=== PATIENT | male | born 1970 | race Caucasian/White ===

== ENCOUNTER 2017-09-08 14:55 | Inpatient (IN) | payer MEDICARE, MEDICAID ==
[~2017-09-08] VITALS: Ht 177.8 cm; Wt 134.5 kg
[2017-09-08] MEDS ORDERED: NITROGLYCERIN SUBLINGUAL 0.4 MG BOTTLE OF 25. SL PRN ×3 (15:00→18:45)
--- NOTE | 2017-09-08 15:00 | PHYS DOC ---
Adult General Chief Complaint Chief Complaint: CHEST PAIN-CARDIAC NATURE HPI HPI Patient is a 47 year old male who presents with child chest pain. He states it started some tenderness when he last for a few minutes and resolves on its own. He states he feels short of breath with this he states that sharp pain is in the left side of his chest and does not radiate. Denies any nausea associated with this. He states this happened about 3 times a day and it occurs at rest. He states he did have a stress test about 3 years ago in [facility] he states his brother the age of 50 had his first heart attack and his dad at the age of 46 from a heart attack. He does smoke he smokes of the age of 12 about a pack per day and also has a history of hypertension and diabetes. Currently states he is pain-free. Review of Systems Review of Systems Constitutional: Denies fever or chills [] Eyes: Denies change in visual acuity, redness, or eye pain [] HENT: Denies nasal congestion or sore throat [] Respiratory: Denies cough or shortness of breath [] Cardiovascular: No additional information not addressed in HPI [] GI: Denies abdominal pain, nausea, vomiting, bloody stools or diarrhea [] : Denies dysuria or hematuria [] Musculoskeletal: Denies back pain or joint pain [] Integument: Denies rash or skin lesions [] Neurologic: Denies headache, focal weakness or sensory changes [] Endocrine: Denies polyuria or polydipsia [] Physical Exam Physical Exam Constitutional: Well developed, well nourished, no acute distress, non-toxic appearance. [] HENT: Normocephalic, atraumatic, bilateral external ears normal, oropharynx moist, no oral exudates, nose normal. [] Eyes: PERRLA, EOMI, conjunctiva normal, no discharge. [] Neck: Normal range of motion, no tenderness, supple, no stridor. [] Cardiovascular:Heart rate regular rhythm, no murmur [] Lungs & Thorax: Bilateral breath sounds clear to auscultation [] Abdomen: Bowel sounds normal, soft, no tenderness, no masses, no pulsatile masses. [] Skin: Warm, dry, no erythema, no rash. [] Back: No tenderness, no CVA tenderness. [] Extremities: No tenderness, no cyanosis, no clubbing, ROM intact, no edema. [] Neurologic: Alert and oriented X 3, normal motor function, normal sensory function, no focal deficits noted. [] Psychologic: Affect normal, judgement normal, mood normal. [] EKG EKG EKG shows heart rate sinus rhythm rate of [address] elevations, T- wave inversions noted in lead aVL, left axis deviation noted, QTC 435 ms, as interpreted by me. Radiology/Procedures Radiology/Procedures [address] [address] IMAGING REPORT Signed PATIENT: ORTEGA HOLMAN ACCOUNT: [id number] : 1970 LOCATION: ER AGE: 47 SEX: M EXAM STATUS: REG ER ORD. PHYSICIAN: OSMANI HAWKINS MD REASON: chest pain PROCEDURE: PORTABLE CHEST 1V Indication chest pain. A single view of the chest was obtained. No prior imaging of the chest is available. Heart size is at the upper limits of normal. There is no congestive heart failure. There is a retrocardiac density at the thoracal abdominal junction which may reflect a hiatus hernia. Other etiologies are not entirely excluded. There is no acute parenchymal infiltrate. There is no pleural fluid or pneumothorax and the visualized bony structures appear grossly intact apart from some degenerative changes at the left AC joint. IMPRESSION: No acute finding in the chest. Suspect hiatus hernia. See above discussion. DICTATED AND SIGNED BY: JUAN R SHANNON MD DATE: 09/08/17 1526 CC: OSMANI HAWKINS MD; PCP,NO ~ Impressions: Chest pain Hypertension Diabetes Tobacco abuse Course & Med Decision Making Course & Med Decision Making Pertinent Labs and Imaging studies reviewed. (See chart for details) EKG does have T-wave inversions in lead aVL, chest x-ray first troponin nonacute. We'll admit for rule out to Dr. Barlow. He did receive aspirin in route by EMS. He accepts the patient for admission. Patient's history, physical exam findings and labs have been discussed with him. Dragon Disclaimer Dragon Disclaimer This chart was dictated in whole or in part using Voice Recognition software in a busy, high-work load, and often noisy Emergency Department environment. It may contain unintended and wholly unrecognized errors or omissions. Departure Departure: Impression: Primary Impression: Chest pain Disposition: ADMITTED INPATIENT Admitting Physician: Shahida Barlow Condition: STABLE Problem Qualifiers Primary Impression: Chest pain Chest pain type: unspecified Qualified Codes: R07.9 - Chest pain, unspecified OSMANI HAWKINS MD Sep 08, 2017 15:00
--- NOTE | 2017-09-08 15:31 | RAD ---
Indication chest pain. A single view of the chest was obtained. No prior imaging of the chest is available. Heart size is at the upper limits of normal. There is no congestive heart failure. There is a retrocardiac density at the thoracal abdominal junction which may reflect a hiatus hernia. Other etiologies are not entirely excluded. There is no acute parenchymal infiltrate. There is no pleural fluid or pneumothorax and the visualized bony structures appear grossly intact apart from some degenerative changes at the left AC joint. IMPRESSION: No acute finding in the chest. Suspect hiatus hernia. See above discussion.
[2017-09-08 15:37] LABS: BASO # 0.1 x10^3/uL (0.0-0.2); BASO % 1 % (0-3); EOS # 0.3 x10^3/uL (0.0-0.7); EOS % 6 % (0-3); HEMOGLOBIN 16.3 g/dL (13.0-17.5); LYMPH # 2.2 x10^3/uL (1.0-4.8); LYMPH % 38 % (24-48); MEAN CORPUSCULAR HEMOGLOBIN 34 pg (25-35); MEAN CORPUSCULAR HGB CONC 35 g/dL (31-37); MEAN CORPUSCULAR VOLUME 98 fL (79-100); MONO # 0.5 x10^3/uL (0.0-1.1); MONO % 8 % (0-9); NEUT # 2.7 x10^3uL (1.8-7.7); NEUT % 47 % (31-73); PLATELET COUNT 89 x10^3/uL (140-400); RED BLOOD COUNT 4.81 x10^6/uL (4.30-5.70); WHITE BLOOD COUNT 5.8 x10^3/uL (4.0-11.0)
[2017-09-08] MEDS ORDERED: ASPIRIN 325 MG TABLET PO ONE (16:00)
[2017-09-08 16:07] LABS: CALCIUM 9.2 mg/dL (8.5-10.1); DIRECT BILIRUBIN 0.2 mg/dL (0.0-0.2); GFR 80.1; MAGNESIUM 1.8 mg/dL (1.8-2.4); TOTAL BILIRUBIN 0.6 mg/dL (0.2-1.0)
[2017-09-08 16:14] LABS: AMPHETAMINE/METHAMPHETAMINE NEG (NEG); BARBITURATES NEG (NEG); BENZODIAZEPINES NEG (NEG); CANNABINOIDS NEG (NEG); COCAINE NEG (NEG); METHADONE NEG (NEG); OPIATES NEG (NEG); PHENCYCLIDINE NEG (NEG)
[2017-09-08 16:30] LABS: BILIRUBIN,URINE NEG (NEG); CLARITY,URINE CLEAR; COLOR,URINE YELLOW; GLUCOSE,URINE NEG (NEG); UROBILINOGEN,URINE 0.2 mg/dL (0.2 mg/dL)
[2017-09-08 16:31] LABS: BACTERIA,URINE 0 /HPF (0-FEW); NITRITE,URINE NEG (NEG); RBC,URINE 0 /HPF (0-2); WBC,URINE 0 /HPF (0-4)
[2017-09-08] MEDS ORDERED: MORPHINE SULFATE 2 MG/ML DISP.SYRIN. IV PRN (17:15)
[2017-09-08] MEDS ORDERED: NICOTINE 21MG PATCH. TD ONE (17:30)
[2017-09-08] MEDS ORDERED: ONDANSETRON PF 4 MG/2 ML VIAL. IV PRN (17:30)
[2017-09-08] MEDS ORDERED: MORPHINE SULFATE 2 MG/ML DISP.SYRIN. IV ONE (17:45)
--- NOTE | 2017-09-08 17:49 | EKG ---
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
[2017-09-08 18:00] VITALS: BP 104/66
[2017-09-08 18:35] VITALS: BP 104/66
[2017-09-08] MEDS ORDERED: NYST15CR TP (18:44)
[2017-09-08] MEDS ORDERED: ESOM40CA PO (18:44)
[2017-09-08] MEDS ORDERED: ASPI-630 PO (18:44)
[2017-09-08] MEDS ORDERED: ATOR10TA60 PO (18:44)
[2017-09-08] MEDS ORDERED: BUDE10.2 IH (18:45)
[2017-09-08] MEDS ORDERED: ALBUTEROL SULFATE 8GM INHALER. IH PRN (18:45)
[2017-09-08] MEDS ORDERED: PREG150C PO (18:45)
[2017-09-08] MEDS ORDERED: LURA80TA PO (18:45)
[2017-09-08] MEDS ORDERED: LISI10TA2 PO (18:46)
[2017-09-08] MEDS ORDERED: METF500T4 PO (18:46)
[2017-09-08] MEDS ORDERED: NORT75CA PO (18:46)
[2017-09-08] MEDS ORDERED: ALBU18HF IH (18:47)
[2017-09-08] MEDS ORDERED: NITR0.4T SL (18:47)
[2017-09-08] MEDS ORDERED: MORP15TA PO (18:50)
[2017-09-08] MEDS ORDERED: ALBUTEROL SULFATE 2.5 MG/3 ML NEBU. NEB PRN (19:30)
[2017-09-08] MEDS: MORPHINE IR 15 MG TABLET PO PRN (19:45)
[2017-09-08 19:48] VITALS: BP 125/70
[2017-09-08] MEDS ORDERED: LURASIDONE 40 MG TABLET. PO SCH (21:00)
[2017-09-08] MEDS ORDERED: ATORVASTATIN CALCIUM 10 MG TABLET. PO SCH (21:00)
[2017-09-08] MEDS ORDERED: FLU VACC QS2017-18 (36MOS+)/PF 0.5 ML SYRINGE. VAX IM ONE (21:00)
[2017-09-08] MEDS ORDERED: NON FORMULARY ITEM (Budesonide/Formoterol Fumarate (Symbicort 160-4.5 Mcg Inhaler) 2 PUFF) IH SCH (21:00)
[2017-09-08] MEDS ORDERED: NORTRIPTYLINE 25 MG CAPSULE PO SCH (21:00)
[2017-09-08] MEDS: BUDESONIDE 0.5 MG/2 ML NEBU NEB SCH (21:08)
[2017-09-08] MEDS: ALBUTEROL SULFATE 2.5 MG/3 ML NEBU. NEB SCH (21:08)
[2017-09-08] MEDS: NYSTATIN 100,000 UNIT/GM TOPICAL CREAM 15GM TUBE. TP SCH (21:20)
[2017-09-08] MEDS: metFORMIN 500 MG TABLET PO SCH (21:21)
[2017-09-08] MEDS: PREGABALIN 150 MG CAPSULE PO SCH (21:22)
--- NOTE | 2017-09-08 22:00 | EKG ---
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
[2017-09-08 22:26] VITALS: BP 122/53
[2017-09-09 04:31] VITALS: BP 141/71
[2017-09-09 04:40] LABS: BASO % 1 % (0-3); EOS # 0.3 x10^3/uL (0.0-0.7); EOS % 5 % (0-3); HEMATOCRIT 43.7 % (39.0-53.0); LYMPH # 2.2 x10^3/uL (1.0-4.8); LYMPH % 36 % (24-48); MEAN CORPUSCULAR HEMOGLOBIN 34 pg (25-35); MEAN CORPUSCULAR HGB CONC 34 g/dL (31-37); MEAN CORPUSCULAR VOLUME 99 fL (79-100); MONO # 0.5 x10^3/uL (0.0-1.1); MONO % 8 % (0-9); NEUT # 3.1 x10^3uL (1.8-7.7); NEUT % 50 % (31-73); PLATELET COUNT 85 x10^3/uL (140-400); RED BLOOD COUNT 4.43 x10^6/uL (4.30-5.70); RED CELL DISTRIBUTION WIDTH 13.1 % (11.5-14.5); WHITE BLOOD COUNT 6.2 x10^3/uL (4.0-11.0)
[2017-09-09 04:43] LABS: CALCIUM 8.7 mg/dL (8.5-10.1); GFR 80.1; POTASSIUM 4.5 mmol/L (3.5-5.1)
[2017-09-09] MEDS: ALBUTEROL SULFATE 2.5 MG/3 ML NEBU. NEB SCH ×2 (05:30→12:31)
[2017-09-09] MEDS ORDERED: PANTOPRAZOLE 40 MG TABLET. PO SCH (07:30)
[2017-09-09] MEDS: PREGABALIN 150 MG CAPSULE PO SCH (08:24)
[2017-09-09] MEDS: MORPHINE IR 15 MG TABLET PO PRN (08:24)
[2017-09-09] MEDS: metFORMIN 500 MG TABLET PO SCH (08:25)
[2017-09-09] MEDS: NYSTATIN 100,000 UNIT/GM TOPICAL CREAM 15GM TUBE. TP SCH (08:25)
[2017-09-09] MEDS ORDERED: LISINOPRIL 10 MG TABLET PO SCH (09:00)
[2017-09-09] MEDS ORDERED: ASPIRIN 81 MG TAB.CHEW PO SCH (09:00)
--- NOTE | 2017-09-09 09:04 | PDOC2 ---
YASEMIN CLINE MARKET RISK ANALYST 09/09/17 0904: CONSULT Date of Admission DATE: 09/09/17 TIME: 09:03 Reason for Consult: cp Problem List Problems Medical Problems: (1) Chest pain Status: Acute History of Present Illness Mr Sy is a 47 year old male with history of hypertension, hyperlipidemia and diabetes. He presents with complaints of chest pain. He describes a sharp stabbing pain in his left chest, non radiating and without associated symptoms. Pain is unrelated to exertion. He reports his functional capacity at 3-4 blocks without symptoms. The pain lasts about a minute and resolves spontaneously. He denies exacerbating or relieving factors. He says he has been having this discomfort for several years but it has become more severe over the last day or so. He did undergo a stress test about 3 years ago that was reportedly normal. He denies any congestive symptoms. He does have dyspnea off and on both with exertion and at rest, that is improved with use of an inhaler. He denies any palpitations, lightheadedness or syncope. He does report his pain was resolved after NTG. Cardiovascular: HTN, hyperipidemia Pulmonary: COPD GI: GERD Endocrine: Diabetes Past Surgical History neck, back and elbow surgeries Family History father from [place] in his 40s brother with [place] at 50 sister with heart failure Social History 1ppd smoker, no ETOH for 20 years, no illicit drugs for 20 years. History of heavy drinking and polysubstance abuse. Current Medications Current Medications Nitroglycerin (Nitrostat) 0.4 mg PRN Q5MIN PRN SL CP RATING > 1/10; Start 10/15 at 15:00; Stop 09/08/17 at 17:36; Status DC Aspirin (Luis Eduardo Aspirin) 325 mg 1X ONCE PO ; Start 09/08/17 at 16:00; Stop 10/15 at 16:01; Status DC Ondansetron HCl (Zofran) 4 mg PRN Q4HRS PRN IV NAUSEA/VOMITING; Start at 17:30; Stop 09/09/17 at 17:29 Morphine Sulfate (Morphine 2mg Syringe) 2 mg PRN Q2HR PRN IV PAIN; Start 09/08 at 17:15; Stop 09/09/17 at 17:14 Nitroglycerin (Nitrostat) 0.4 mg PRN Q5MIN PRN SL CHEST PAIN Last administered on 09/08/17 17:26; Start 09/08/17 at 17:15; Stop 09/08/17 at 19:23; Status DC Nicotine (Nicoderm Cq 21mg) 1 patch 1X ONCE TD Last administered on 19:42; Start 09/08/17 at 17:30; Stop 09/08/17 at 17:31; Status DC Morphine Sulfate (Morphine 2mg Syringe) 2 mg 1X ONCE IV ; Start 09/08/17 at 17 :45; Stop 09/08/17 at 17:46; Status DC Albuterol Sulfate (Ventolin Hfa) 1 puff PRN Q4HRS PRN IH FOR ASTHMA; Start 10/15 at 18:45; Status UNV Aspirin (Children'S Aspirin) 81 mg DAILY PO Last administered on 09/09/17 08: 25; Start 09/09/17 at 09:00 Atorvastatin Calcium (Lipitor) 10 mg QHS PO Last administered on 09/08/17 21: 21; Start 09/08/17 at 21:00 Lisinopril (Prinivil) 10 mg DAILY PO Last administered on 09/09/17 08:25; Start 09/09/17 at 09:00 Metformin HCl (Glucophage) 500 mg BIDWMEALS PO Last administered on 09/09/17 08:25; Start 09/08/17 at 20:00 Morphine Sulfate (Morphine Ir) 15 mg PRN Q4HRS PRN PO PAIN Last administered on 09/09/17 08:24; Start 09/08/17 at 18:45 Nitroglycerin (Nitrostat) 0.4 mg PRN Q5MIN PRN SL CHEST PAIN; Start 09/08/17 at 18:45 Nystatin (Mycostatin) 1 wally BID TP Last administered on 09/09/17 08:25; Start 09/08/17 at 21:00 Pregabalin (Lyrica) 150 mg TID PO Last administered on 09/09/17 08:24; Start 09/08/17 at 21:00 Non-Formulary Medication 2 puff BID IH ; Start 09/08/17 at 21:00; Status UNV Pantoprazole Sodium (Protonix) 40 mg DAILYAC PO Last administered on 08:25; Start 09/09/17 at 07:30 Non-Formulary Medication 1 tab QHS PO ; Start 09/08/17 at 21:00; Status UNV Nortriptyline HCl (Pamelor) 75 mg QHS PO Last administered on 09/08/17 21:26 ; Start 09/08/17 at 21:00 Influenza Virus Vaccine Quadrival (Fluarix Quad [id number] Syringe) 0.5 ml ONCE ONCE VAX IM Last administered on 09/08/17 21:24; Start 09/08/17 at 21:00; Stop 09/08/17 at 21:01; Status DC Albuterol Sulfate (Ventolin) 2.5 mg PRN Q4HRS PRN NEB SHORTNESS OF BREATH; Start 09/08/17 at 19:30 Albuterol Sulfate (Ventolin) 2.5 mg RTQID NEB Last administered on 09/09/17 05:30; Start 09/08/17 at 20:00 Budesonide (Pulmicort) 0.5 mg RTBID NEB Last administered on 09/08/17 21:08; Start 09/08/17 at 20:00 Active Scripts Active Reported Morphine Sulfate 15 Mg Tablet 1 Tab PO PRN Q4HRS PRN Nitrostat (Nitroglycerin) 0.4 Mg Tab.subl 0.4 Mg SL PRN Q5MIN PRN Ventolin Hfa Inhaler (Albuterol Sulfate) 18 Gm Hfa.aer.ad 1 Puff IH PRN Q4HRS PRN Lisinopril 10 Mg Tablet 10 Mg PO DAILY Metformin Hcl 500 Mg Tablet 1 Tab PO BID Nortriptyline Hcl 75 Mg Capsule 75 Mg PO QHS Symbicort 160-4.5 Mcg Inhaler (Budesonide/Formoterol Fumarate) 10.2 Gm Hfa.aer.ad 2 Puff IH BID Lyrica (Pregabalin) 150 Mg Capsule 150 Mg PO TID Latuda (Lurasidone Hcl) 80 Mg Tablet 1 Tab PO QHS Nystatin 15 Gm Cream..g. 1 Wally TP BID Atorvastatin Calcium 10 Mg Tablet 10 Mg PO QHS Nexium Capsule (Esomeprazole Magnesium) 40 Mg Capsule.dr 40 Mg PO DAILYAC Aspirin 81 Mg Tab.chew 81 Mg PO DAILY Allergies: Coded Allergies: Penicillins (Verified Allergy, Unknown, 09/08/17) Review of System as per HPI General: Alert, Oriented X3, Cooperative, No acute distress HEENT: Atraumatic, EOMI Heart: Regular rate, Normal S1, Normal S2, Other (no gallops, clicks or rubs) Abdomen: Normal bowel sounds, Soft, No tenderness Extremities: No cyanosis, Normal pulses, Other (trace edema) Neuro: Normal speech, Strength at 5/5 X4 ext Psych/Mental Status: Mental status NL, Mood NL VITALS Vital Signs Date Time Temp Pulse Resp B/P (MAP) Pulse Ox O2 Delivery O2 Flow Rate FiO2 09/09/17 08:25 87 141/71 09/09/17 07:50 Room Air 09/09/17 05:31 96 2.0 09/09/17 04:31 97.7 18 Labs Laboratory Tests Test 09/08/17 15:20 09/08/17 15:28 09/08/17 19:58 09/08/17 22:10 White Blood Count 5.8 x10^3/uL (4.0-11.0) Red Blood Count 4.81 x10^6/uL (4.30-5.70) Hemoglobin 16.3 g/dL (13.0-17.5) Hematocrit 47.0 % (39.0-53.0) Mean Corpuscular Volume 98 fL (79-100) Mean Corpuscular Hemoglobin 34 pg (25-35) Mean Corpuscular Hemoglobin Concent 35 g/dL (31-37) Red Cell Distribution Width 13.0 % (11.5-14.5) Platelet Count 89 x10^3/uL (140-400) Neutrophils (%) (Auto) 47 % (31-73) Lymphocytes (%) (Auto) 38 % (24-48) Monocytes (%) (Auto) 8 % (0-9) Eosinophils (%) (Auto) 6 % (0-3) Basophils (%) (Auto) 1 % (0-3) Neutrophils # (Auto) 2.7 x10^3uL (1.8-7.7) Lymphocytes # (Auto) 2.2 x10^3/uL (1.0-4.8) Monocytes # (Auto) 0.5 x10^3/uL (0.0-1.1) Eosinophils # (Auto) 0.3 x10^3/uL (0.0-0.7) Basophils # (Auto) 0.1 x10^3/uL (0.0-0.2) Prothrombin Time 10.3 SEC (9.4-11.4) Prothromb Time International Ratio 1.0 (0.9-1.1) Activated Partial Thromboplast Time 24 SEC (23-33) Sodium Level 139 mmol/L (136-145) Potassium Level 4.0 mmol/L (3.5-5.1) Chloride Level 101 mmol/L (98-107) Carbon Dioxide Level 30 mmol/L (21-32) Anion Gap 8 (6-14) Blood Urea Nitrogen 9 mg/dL (8-26) Creatinine 1.0 mg/dL (0.7-1.3) Estimated GFR (Cockcroft-Gault) 80.1 Glucose Level 140 mg/dL (70-99) Calcium Level 9.2 mg/dL (8.5-10.1) Magnesium Level 1.8 mg/dL (1.8-2.4) Total Bilirubin 0.6 mg/dL (0.2-1.0) Direct Bilirubin 0.2 mg/dL (0.0-0.2) Aspartate Amino Transf (AST/SGOT) 76 U/L (15-37) Alanine Aminotransferase (ALT/SGPT) 136 U/L (16-63) Alkaline Phosphatase 109 U/L (46-116) Creatine Kinase 577 U/L (39-308) Creatine Kinase MB (Mass) 1.7 ng/mL (0.0-3.6) Creatine Kinase MB Relative Index 0.3 % (0-4) Troponin I Quantitative 0.018 ng/mL (0-0.055) 0.018 ng/mL (0-0.055) GA-Uhx-R-Type Natriuretic Peptide 12 pg/mL (0-124) Total Protein 7.0 g/dL (6.4-8.2) Albumin 4.0 g/dL (3.4-5.0) Urine Collection Type Void Urine Color Yellow Urine Clarity Clear Urine pH 6.0 Urine Specific Faber <=1.005 Urine Protein Neg (NEG-TRACE) Urine Glucose (UA) Neg mg/dL (NEG) Urine Ketones (Stick) Neg mg/dL (NEG) Urine Blood Neg (NEG) Urine Nitrite Neg (NEG) Urine Bilirubin Neg (NEG) Urine Urobilinogen Dipstick 0.2 mg/dL (0.2 mg/dL) Urine Leukocyte Esterase Neg (NEG) Urine RBC 0 /HPF (0-2) Urine WBC 0 /HPF (0-4) Urine Squamous Epithelial Cells None /LPF Urine Bacteria 0 /HPF (0-FEW) Urine Opiates Screen Neg (NEG) Urine Methadone Screen Neg (NEG) Urine Barbiturates Neg (NEG) Urine Phencyclidine Screen Neg (NEG) Urine Amphetamine/Methamphetamine Neg (NEG) Urine Benzodiazepines Screen Neg (NEG) Urine Cocaine Screen Neg (NEG) Urine Cannabinoids Screen Neg (NEG) Urine Ethyl Alcohol Neg (NEG) Glucose (Fingerstick) 158 mg/dL (70-99) Test 09/09/17 04:05 09/09/17 07:40 White Blood Count 6.2 x10^3/uL (4.0-11.0) Red Blood Count 4.43 x10^6/uL (4.30-5.70) Hemoglobin 15.0 g/dL (13.0-17.5) Hematocrit 43.7 % (39.0-53.0) Mean Corpuscular Volume 99 fL (79-100) Mean Corpuscular Hemoglobin 34 pg (25-35) Mean Corpuscular Hemoglobin Concent 34 g/dL (31-37) Red Cell Distribution Width 13.1 % (11.5-14.5) Platelet Count 85 x10^3/uL (140-400) Neutrophils (%) (Auto) 50 % (31-73) Lymphocytes (%) (Auto) 36 % (24-48) Monocytes (%) (Auto) 8 % (0-9) Eosinophils (%) (Auto) 5 % (0-3) Basophils (%) (Auto) 1 % (0-3) Neutrophils # (Auto) 3.1 x10^3uL (1.8-7.7) Lymphocytes # (Auto) 2.2 x10^3/uL (1.0-4.8) Monocytes # (Auto) 0.5 x10^3/uL (0.0-1.1) Eosinophils # (Auto) 0.3 x10^3/uL (0.0-0.7) Basophils # (Auto) 0.0 x10^3/uL (0.0-0.2) Sodium Level 138 mmol/L (136-145) Potassium Level 4.5 mmol/L (3.5-5.1) Chloride Level 103 mmol/L (98-107) Carbon Dioxide Level 32 mmol/L (21-32) Anion Gap 3 (6-14) Blood Urea Nitrogen 7 mg/dL (8-26) Creatinine 1.0 mg/dL (0.7-1.3) Estimated GFR (Cockcroft-Gault) 80.1 Glucose Level 120 mg/dL (70-99) Calcium Level 8.7 mg/dL (8.5-10.1) Troponin I Quantitative 0.018 ng/mL (0-0.055) Glucose (Fingerstick) 118 mg/dL (70-99) Images EKG - sinus rhythm with nonspecific abn CXR - IMPRESSION: No acute finding in the chest. Suspect hiatus hernia. See above discussion. Assessment/Plan 1. Atypical chest pain - no acute ischemic change on EKG, CE negative x3. 2. hypertension 3. hyperlipidemia 4. diabetes mellitus 5. GERD Atypical chest pain, however significant risk factors would certainly warrant stress testing. Suggest addition of antianginals and MPI in am. Could be done outpatient if necessary. Will check lipids and request prior MPI reports. Prior MPI and echo reviewed. Normal LV function and wall motion in 2013. No evidence of ischemia on stress test in 2013. Plan for outpatient echo and Lexiscan MPI. Problems: CARLOS ALBERTO ROMERO MD 09/09/17 1627: CONSULT Allergies: Coded Allergies: Penicillins (Verified Allergy, Unknown, 09/08/17) YASEMIN CLINE APRN Sep 09, 2017 09:04 CARLOS ALBERTO ROMERO MD Sep 09, 2017 16:27
[2017-09-09] MEDS ORDERED: METOPROLOL TART IMMED RELEASE 25 MG TABLET PO SCH (10:00)
[2017-09-09 11:01] VITALS: BP 127/78
[2017-09-09] MEDS: BUDESONIDE 0.5 MG/2 ML NEBU NEB SCH (12:31)
[2017-09-09] MEDS ORDERED: METO25TA4 PO (14:20)
--- NOTE | 2017-09-09 15:06 | HP ---
ADMIT DATE: 09/08/2017 HISTORY OF PRESENT ILLNESS: The patient is a 47-year-old male patient who basically presented to the Emergency Room with a complaint of chest pain, described as a sharp, stabbing pain in his left chest, nonradiating without associated symptoms. The pain is unrelated to exertion. He reports his functional capacity is at 3-4 blocks without symptoms. Pain lasted for about a minute and resolved spontaneously. Denies any exacerbating or relieving factors. He apparently has had this discomfort for several years, but it has become more severe over the last days or so. He did undergo a stress test about 3 years ago and was reportedly normal. He denied any congestive symptoms. He does have dyspnea off and on, both with exertion and at rest that improves with the use of inhalers. He denies any palpitations, lightheadedness, syncope. He stated that his pain has resolved with nitroglycerin. PAST MEDICAL HISTORY: Significant for hypertension, hyperlipidemia, chronic obstructive pulmonary disease, gastroesophageal reflux disease, and type 2 diabetes. PAST SURGICAL HISTORY: Significant for neck, back and elbow surgeries. FAMILY HISTORY: Father was from myocardial infarction in his 40s. His brother has had myocardial infarctions in his 50s. His sister has heart failure. SOCIAL HISTORY: History of heavy drinking and polysubstance abuse. He smokes a pack a day and no alcohol for 20 years, no illicit drugs for 20 years. MEDICATIONS: He is currently on following medications: He is on albuterol sulfate 1 puff every 4 hours, aspirin 81 mg once a day, atorvastatin calcium 10 mg at bedtime, Symbicort 160/4.5 two puffs twice a day, Nexium 40 mg daily, lisinopril 10 mg once a day, Latuda 80 mg at bedtime, metformin 500 mg twice a day, morphine sulfate 15 mg every 4 hours, nitroglycerin 0.4 mg every 5 minutes x 3, nortriptyline 75 mg at bedtime, nystatin cream applied topically twice a day, pregabalin for Lyrica 150 mg 3 times a day. PHYSICAL EXAMINATION: GENERAL: On arrival to the Emergency Room, the patient looked well and was clearly in no apparent respiratory distress. No pallor, jaundice, cyanosis, lymphadenopathy or thyromegaly. No jugular venous distention. No limb edema. VITAL SIGNS: His heart rate was 92, blood pressure was 129/77, temperature was 98.4, respiratory rate was 16, and oxygen saturation was 97% on room air. HEENT: Showed normocephalic, atraumatic. NECK: Supple. HEART: Showed normal first and second heart sounds with no gallop, rub or murmur. CHEST: Clear to auscultation. No crepitation or rhonchi. ABDOMEN: Distended, soft, nontender. NEUROLOGIC: He is awake, alert, responding appropriately. All cranial nerves intact. EXTREMITIES: He moves extremities without difficulty, ambulates without assistance or assistive devices. LABORATORY DATA: While in the Emergency Room, he had lab work done, which showed a white cell count of 5800, hemoglobin 16, hematocrit 47, MCV 98 and platelet count of 89,000. His chemistry showed a serum sodium of 139, potassium 4, chloride 101, bicarbonate 30, anion gap of 8, BUN 9, creatinine 1, estimated GFR was 80 mL per minute. His glucose was 140, calcium was 9.2, magnesium was 1.8. Total bilirubin is normal as well as alkaline phosphatase. His AST, ALT are elevated. His CK was high at 577. His first set of cardiac enzymes showed troponin to be less than 0.018. His beta-natriuretic peptide was 12, total protein 7, albumin 4. His prothrombin time was 10.3, INR 1, aPTT was 24. Urinalysis was unremarkable and urine toxic screen was negative. His chest x-ray showed the heart size at the upper limit of normal. There is no congestive heart failure. There is a retrocardiac density at the thoracoabdominal junction, which may represent a hiatal hernia. Other etiologies are not entirely excluded. There is no acute parenchymal infiltrate. There is no pleural fluid or pneumothorax. The visualized bony structures appear grossly intact, apart from some degenerative changes of the left acromioclavicular joint. His EKG does have T-wave inversion in lead aVL but no ST segment elevation or depression. PLAN: The patient was admitted to do 2 more sets of cardiac enzymes, check his fasting lipid profile and consult the Cardiology team. VAUGHN MUNIZ MD DR: LAVINIA/chelsea JOB#: [id number] / [id number]
--- NOTE | 2017-09-09 22:09 | DS ---
DATE OF DISCHARGE: 09/09/2017 HOSPITAL COURSE: The patient is 47-year-old male patient, who was admitted with chest pain. He has had 3 sets of cardiac enzymes, all of them showed the troponin to be less than 0.018. He was evaluated by the Cardiology team and given his multiple risk factors for coronary artery disease and very strong family history, a decision was made to discharge him home. He was started on metoprolol and decision was made to discharge him home to arrange for a nuclear stress test as an outpatient as well as an echocardiogram. PHYSICAL EXAMINATION: GENERAL: When I saw him this afternoon, he looked well and was clearly in no apparent respiratory distress, pale, but no jaundice, cyanosis, or thyromegaly. No jugular venous distention. No limb edema. VITAL SIGNS: His heart rate was 84, blood pressure was 127/78, temperature was 98.6, respiratory rate 21, and oxygen saturation was 96%. HEAD, EYES, EARS, NOSE, AND THROAT: Showed normocephalic, atraumatic. NECK: Supple. HEART: Showed normal first and second heart sounds with no gallop, rub, or murmur. CHEST: Clear to auscultation. No crepitation or rhonchi. ABDOMEN: Distended, soft, nontender. No guarding or rigidity. No organomegaly. Hernial orifices intact. Bowel sounds normal. NEUROLOGIC: He was awake, alert, responding appropriately. Cranial nerves intact. EXTREMITIES: He moves extremities without difficulty, ambulates without assistance or assistive devices. LABORATORY DATA: Today showed a serum sodium 138, potassium 4.5, chloride 103, bicarbonate 32, anion gap of 3, BUN 7, creatinine 1, estimated GFR was 80 mL per minute. His glucose was 120, calcium was 8.7. There are 2 more sets of cardiac enzyme. Both of them were less than 0.018. His fasting lipid profile showed serum triglycerides of 154. Total cholesterol 167, LDL cholesterol was 100, VLDL was 30, and HDL cholesterol 37, the ratio was 4. His TSH was 1.295. His white cell count was 6200, hemoglobin 15, hematocrit 44, MCV 99, and platelet count of 85,000. DISCHARGE MEDICATIONS: He was discharged home to continue on following medications: Metoprolol tartrate 25 mg twice a day, albuterol sulfate 1 puff every 4 hours, aspirin 81 mg once a day, atorvastatin calcium 10 mg at bedtime, Symbicort 2 puffs twice a day, Nexium 40 mg once a day, lisinopril 10 mg once a day, Latuda 80 mg once a day, metformin 500 mg p.o. b.i.d., morphine sulfate 15 mg every 4 hours as needed, nitroglycerin 0.4 mg sublingually every 5 minutes x 3, nortriptyline 75 mg at bedtime, pregabalin/Lyrica 150 mg 3 times a day and nystatin cream applied topically twice a day. FINAL DISCHARGE DIAGNOSES: Chest pain, myocardial infarction ruled out, hypertension, hyperlipidemia, chronic obstructive pulmonary disease, gastroesophageal reflux disease, type 2 diabetes, thrombocytopenia, and nonalcohol steatohepatitis. VAUGHN MUNIZ MD DR: LAVINIA/[place]sea JOB#: [id number] / [id number]
== END 2017-09-09 14:49 | disposition home or self-care (01) | DRG 313 ==
LOC: ER 14:55 → ICU 16:45
PROVIDERS: ADMIT Internal Medicine; ATTEND Internal Medicine
DX: R07.89 Other chest pain (principal); I25.10 Atherosclerotic heart disease of native coronary artery without angina pectoris; D69.6 Thrombocytopenia, unspecified; K75.81 Nonalcoholic steatohepatitis (NASH); E11.9 Type 2 diabetes mellitus without complications; E78.5 Hyperlipidemia, unspecified; F17.210 Nicotine dependence, cigarettes, uncomplicated; I10 Essential (primary) hypertension; J44.9 Chronic obstructive pulmonary disease, unspecified; K21.9 Gastro-esophageal reflux disease without esophagitis; Z82.49 Family history of ischemic heart disease and other diseases of the circulatory system; F19.10 Other psychoactive substance abuse, uncomplicated; Z88.0 Allergy status to penicillin
CPT/HCPCS: 36415; 71010; 80048; 80061; 80076; 80307; 81001; 82553; 82947; 83735; 83880; 84443; 84484; 85025; 85610; 85730; 87641; 90686; 93005; 94640; J7613; J7626; 99285-25; G0479

== ENCOUNTER 2019-01-28 17:45 | Emergency (ER) | payer MEDICARE, MEDICAID ==
[~2019-01-28] VITALS: Ht 177.8 cm; Wt 128.0 kg
[~2019-01-28 17:45] MED LIST: ALBU2.5V8 IH; ASPI-630 PO; ATOR10TA60 PO; BUDE10.2 IH; ESOM40CA PO; LISI10TA2 PO; LURA80TA PO; METF500T16 PO; METO25TA4 PO; MORP15TA PO; NITR0.4T SL; NORT75CA PO; NYST15CR TP; PREG150C PO
--- NOTE | 2019-01-28 17:48 | ED.ADGEN ---
Past History Past Medical History: COPD, Diabetes, High Cholesterol, Hypertension Past Surgical History: Cervical Fusion, Other Alcohol Use: None Drug Use: None Adult General Chief Complaint Chief Complaint "... I fell over the laundry basket.. and yin twisted up my back and neck... I ve had two surgeries on my neck... " HPI HPI Patient is a 48 year old male who presents with above hx and complaints shoulder and back pain. Pt. has had multiple surgeries to his neck. Pt. localizes pain in paraspinal muscles and cervical as well asRt. rhomboid and trapezius muscles. Patient distal neurovascular equal in both hands. Patient denies any problems with defecation or urination. No history of fever or chills. Denies immunosuppression. Does have extensive scarring both anterior and posterior cervical region. Patient normally follows at [facility] for his care. Review of Systems Review of Systems Constitutional: Denies fever or chills [] Eyes: Denies change in visual acuity, redness, or eye pain [] HENT: Denies nasal congestion or sore throat [ Does have neck pain and right shoulder trapezius pain Respiratory: Denies cough or shortness of breath [] Cardiovascular: No additional information not addressed in HPI [] GI: Denies abdominal pain, nausea, vomiting, bloody stools or diarrhea [] : Denies dysuria or hematuria [] Musculoskeletal: Denies back pain or joint pain [] Integument: Denies rash or skin lesions [] Neurologic: Denies headache, focal weakness or sensory changes [] Endocrine: Denies polyuria or polydipsia [] All other systems were reviewed and found to be within normal limits, except as documented in this note. Family History Family History Noncontributory Current Medications Current Medications Current Medications Medications (Trade) Dose Ordered Sig/[place] Start Time Stop Time Status Last Admin Dose Admin Lorazepam (Ativan) 2 mg 1X ONCE 01/28/19 18:30 01/28/19 18:31 DC 01/28/19 18:24 2 MG Methylprednisolone Acetate (DEPO-Medrol IM) 40 mg 1X ONCE 01/28/19 18:30 01/28/19 18:31 DC 01/28/19 18:24 40 MG Orphenadrine Citrate (Norflex) 60 mg 1X ONCE 01/28/19 18:30 01/28/19 18:31 DC 01/28/19 18:24 60 MG Tramadol HCl (Ultram) 100 mg 1X ONCE 01/28/19 18:30 01/28/19 18:31 DC 01/28/19 18:23 100 MG Allergies Allergies Allergies Coded Allergies Type Severity Reaction Last Updated Verified Penicillins Allergy Intermediate 01/28/19 Yes morphine Allergy Intermediate 01/28/19 Yes Physical Exam Physical Exam Constitutional: Moderately acute distress, non-toxic appearance. [] HENT: Normocephalic, atraumatic, bilateral external ears normal, oropharynx moist, no oral exudates, nose normal. [] Eyes: PERRLA, EOMI, conjunctiva normal, no discharge. [] Neck: Normal range of motion, paracervical muscle tenderness, supple, no stridor. []Old surgery scars Cardiovascular:Heart rate regular rhythm, no murmur [] Lungs & Thorax: Bilateral breath sounds equal apex with scattered wheezes auscultation [] Abdomen: Bowel sounds normal, soft, no tenderness, no masses, no pulsatile masses. [] Skin: Warm, dry, no erythema, no rash. Multiple tattoos Back: No tenderness, no CVA tenderness. [] Extremities: No tenderness, no cyanosis, no clubbing, ROM intact, no edema. [] Neurologic: Alert and oriented X 3, normal motor function, normal sensory function, no focal deficits noted. [DTR +2 patella and brachial. 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 Psychologic: Affect anxious, judgement normal, mood normal. [] Current Patient Data Vital Signs Vital Signs Date Time Temp Pulse Resp B/P (MAP) Pulse Ox O2 Delivery O2 Flow Rate FiO2 01/28/19 19:22 80 16 107/71 (83) 95 Room Air 01/28/19 17:50 98.2 EKG EKG [] Radiology/Procedures Radiology/Procedures Plain films of x-ray show. Surgical fixation but no obvious fracture or dislocation. There is findings of degenerative joint changes.[] Course & Med Decision Making Course & Med Decision Making Pertinent Labs and Imaging studies reviewed. (See chart for details) Patient to use ice packs for the next 3 days. After 3 days if no reentry may then moist heat. Take [id number] Tylenol and ibuprofen for pain. For marked pain may take tramadol 4 times a day. Have a trial of Flexeril 10 mg 3 times a day for muscle spasms. Must follow-up primary care. Return if any concerns. [] Final Impression Final Impression 1. Fall[] 2. Cervical sprain strain 3. Cervical DJD Dragon Disclaimer Dragon Disclaimer This electronic medical record was generated, in whole or in part, using a voice recognition dictation system. Dragon Disclaimer This chart was dictated in whole or in part using Voice Recognition software in a busy, high-work load, and often noisy Emergency Department environment. It may contain unintended and wholly unrecognized errors or omissions. Discharge Summary Visit Information Final Diagnosis Problems Medical Problems: (1) Cervical paraspinal muscle spasm Status: Acute (2) Muscle strain Status: Acute Brief Hospital Course Allergies Allergies Coded Allergies Type Severity Reaction Last Updated Verified Penicillins Allergy Intermediate 01/28/19 Yes morphine Allergy Intermediate 01/28/19 Yes Vital Signs Vital Signs Date Time Temp Pulse Resp B/P (MAP) Pulse Ox O2 Delivery O2 Flow Rate FiO2 01/28/19 19:22 80 16 107/71 (83) 95 Room Air 01/28/19 17:50 98.2 Brief Hospital Course Mr. Sy is a 48 old male who presented with cervical strain/ sprain. Discharge Information Condition at Discharge: Improved, Stable Disposition/Orders: D/C to Home Dischare Medications Current Medications Orphenadrine Citrate (Norflex) 60 mg 1X ONCE IM Last administered on 01/28/19 18:24; Admin Dose 60 MG; Start 01/28/19 at 18:30; Stop 01/28/19 at 18:31; Status DC Methylprednisolone Acetate (DEPO-Medrol IM) 40 mg 1X ONCE IM Last administered on 01/28/19 18:24; Admin Dose 40 MG; Start 01/28/19 at 18:30; Stop 01/28/19 at 18:31; Status DC Tramadol HCl (Ultram) 100 mg 1X ONCE PO Last administered on 01/28/19 18:23; Admin Dose 100 MG; Start 01/28/19 at 18:30; Stop 01/28/19 at 18:31; Status DC Lorazepam (Ativan) 2 mg 1X ONCE IM Last administered on 01/28/19 18:24; Admin Dose 2 MG; Start 01/28/19 at 18:30; Stop 01/28/19 at 18:31; Status DC Active Scripts Active Cyclobenzaprine Hcl 10 Mg Tablet 10 Mg PO TID Tramadol Hcl (Tramadol HCl) 50 Mg Tablet 100 Mg PO PRN Q6HRS PRN Metoprolol Tartrate 25 Mg Tablet 1 Tab PO BID 30 Days Reported Morphine Sulfate 15 Mg Tablet 1 Tab PO PRN Q4HRS PRN last dose this morning next dose as needed Nitrostat (Nitroglycerin) 0.4 Mg Tab.subl 0.4 Mg SL PRN Q5MIN PRN may resume as needed Ventolin Hfa Inhaler (Albuterol Sulfate) 18 Gm Hfa.aer.ad 1 Puff IH PRN Q4HRS PRN resume use as needed Lisinopril 10 Mg Tablet 10 Mg PO DAILY last dose this morning next dose tomorrow Metformin Hcl 500 Mg Tablet 1 Tab PO BID last dose this morning next dose tonight Nortriptyline Hcl 75 Mg Capsule 75 Mg PO QHS last dose this morning next dose tonight Symbicort 160-4.5 Mcg Inhaler (Budesonide/Formoterol Fumarate) 10.2 Gm Hfa.aer.ad 2 Puff IH BID last dose this morning next dose tonight Lyrica (Pregabalin) 150 Mg Capsule 150 Mg PO TID last dose this morning next dose this afternoon Latuda (Lurasidone Hcl) 80 Mg Tablet 1 Tab PO QHS last dose last night next dose tonight Nystatin 15 Gm Cream..g. 1 Wally TP BID resume use as needed Atorvastatin Calcium 10 Mg Tablet 10 Mg PO QHS last dose last night next dose tonight Nexium Capsule (Esomeprazole Magnesium) 40 Mg Capsule.dr 40 Mg PO DAILYAC last dose this morning next dose tomorrow Aspirin 81 Mg Tab.chew 81 Mg PO DAILY last dose this morning next dose tomorrow JOHNIE MORELAND MD Jan 28, 2019 17:48
[2019-01-28] MEDS ORDERED: TRAM50TA PO (18:18)
[2019-01-28] MEDS ORDERED: CYCL-331 PO (18:18)
[2019-01-28] MEDS ORDERED: traMADol 50 MG TABLET PO ONE (18:30)
[2019-01-28] MEDS ORDERED: ORPHENADRINE CITRATE 60 MG/2 ML VIAL. IM ONE (18:30)
[2019-01-28] MEDS ORDERED: methylPREDNISolone ACETATE 40 MG/ML VIAL. IM ONE (18:30)
--- NOTE | 2019-01-28 18:45 | RAD ---
4 view C-spine HISTORY: Pain after fall 2 days ago AP lateral and open-mouth and symmetric projections were obtained There has been prior anterior posterior fusion lower C-spine. The vertebral bodies are aligned. There is no loss of vertebral body stature. The C1-C2 relationship is normal. There is no prevertebral soft tissue swelling. IMPRESSION: No acute findings. Electronically signed by: Reece Pérez III, MD (01/28/2019 6:42 PM) [id number]
[2019-01-28 19:22] VITALS: BP 107/71
== END 2019-01-28 19:25 | disposition home or self-care (01) ==
LOC: ER 17:45
DX: S13.4XXA Sprain of ligaments of cervical spine, initial encounter (principal); M47.892 Other spondylosis, cervical region; M25.511 Pain in right shoulder; M62.838 Other muscle spasm; J44.9 Chronic obstructive pulmonary disease, unspecified; E11.9 Type 2 diabetes mellitus without complications; E78.00 Pure hypercholesterolemia, unspecified; I10 Essential (primary) hypertension; Z88.0 Allergy status to penicillin; Z88.5 Allergy status to narcotic agent; W18.39XA Other fall on same level, initial encounter; Y93.89 Activity, other specified; Y92.89 Other specified places as the place of occurrence of the external cause; Y99.8 Other external cause status
CPT/HCPCS: 72040; 96372; 99284; J1030; J2060; J2360

== ENCOUNTER → 2019-04-04 | Outpatient (CLI) | payer MEDICARE, MEDICAID ==
[~2019-04-04] MED LIST changes: +CYCL-331 PO; +TRAM50TA PO
== END | disposition home or self-care (01) ==
LOC: SURG 09:51
PROVIDERS: ATTEND Anesthesiology
DX: M54.5 Low back pain (principal); M54.2 Cervicalgia; M96.1 Postlaminectomy syndrome, not elsewhere classified; G89.4 Chronic pain syndrome; I10 Essential (primary) hypertension; E78.5 Hyperlipidemia, unspecified; F17.200 Nicotine dependence, unspecified, uncomplicated; Z79.84 Long term (current) use of oral hypoglycemic drugs; Z79.899 Other long term (current) drug therapy
CPT/HCPCS: 82947; 99204